=== PATIENT | male | born 1950 | race Caucasian/White ===

== ENCOUNTER → 2018-05-01 | Outpatient (REF) | payer BC, OTHER ==
[2018-05-01 13:11] LABS: INR 1.01; PROTHROMBIN TIME 13.4 SECONDS (12.1-14.4)
[2018-05-01 13:12] LABS: PARTIAL THROMBOPLASTIN TIME 30.2 SECONDS (25.4-37.6)
== END ==
LOC: M LAB REF 12:19
DX: I48.0 Paroxysmal atrial fibrillation (principal)
CPT/HCPCS: 85610

== ENCOUNTER → 2018-11-12 | Outpatient (REF) | payer MEDICARE, OTHER | LOC: M LAB REF 12:15 | PROVIDERS: ATTEND Internal Medicine | DX: M10.9 Gout, unspecified (principal) ==

== ENCOUNTER → 2019-02-26 | Outpatient (REF) | payer MEDICARE, OTHER | LOC: M LAB REF 12:19 | PROVIDERS: ATTEND Internal Medicine | DX: M10.9 Gout, unspecified (principal) ==

== ENCOUNTER 2019-03-14 16:58 | Inpatient (IN) | payer MEDICARE, OTHER ==
[~2019-03-14] VITALS: Ht 175.3 cm; Wt 85.2 kg
[2019-03-14] MEDS ORDERED: LOSA25TA14 PO (17:07)
[2019-03-14] MEDS ORDERED: XARE20TA PO (17:07)
[2019-03-14] MEDS ORDERED: METO1TAB33 PO (17:07)
[2019-03-14] MEDS ORDERED: ATOR40TA75 PO (17:07)
[2019-03-14] MEDS ORDERED: METO1TAB32 PO (17:07)
[2019-03-14] MEDS ORDERED: DIGOXIN INJ 0.5 MG/2 ML AMP (J1160) IV STA ×2 (17:56→20:53)
[2019-03-14 18:02] LABS: BASO % 0.5 % (0.0-1.0); EOS # 0.1 10^3/uL (0.0-0.50); EOS % 1.4 % (0.0-3.0); HEMATOCRIT 45.4 % (42.0-52.0); HEMOGLOBIN 15.4 g/dl (13.5-17.5); LYMPH # 2.1 10^3/uL (1.5-4.5); LYMPH % 32.2 % (24.0-44.0); MEAN CORPUSCULAR HEMOGLOBIN 31.4 pg (27.0-33.0); MEAN CORPUSCULAR HGB CONC 33.9 g/dl (32.0-36.5); MEAN CORPUSCULAR VOLUME 92.7 fl (80.0-96.0); MONO # 0.7 10^3/uL (0.0-0.8); MONO % 11.5 % (0.0-5.0); NEUTROPHILS # 3.5 10^3/uL (1.8-7.7); NEUTROPHILS % 54.1 % (36.0-66.0); PLATELET COUNT, AUTOMATED 227 10^3/uL (150-450); WHITE BLOOD COUNT 6.4 10^3/uL (4.0-10.0)
[2019-03-14 18:13] LABS: INR 1.54; PROTHROMBIN TIME 18.2 SECONDS (11.8-14.0)
[2019-03-14 18:40] LABS: ALBUMIN 3.7 GM/DL (3.2-5.2); ALT/SGPT 54 U/L (12-78); BILIRUBIN,DIRECT 0.5 MG/DL (0.0-0.2); BILIRUBIN,TOTAL 2.8 MG/DL (0.2-1.0); BLOOD UREA NITROGEN 22 MG/DL (7-18); CALCIUM LEVEL 9.7 MG/DL (8.8-10.2); CARBON DIOXIDE LEVEL 28 MEQ/L (21-32); CHLORIDE LEVEL 106 MEQ/L (98-107); CK-MB VALUE MASS 1.6 NG/ML (<3.6); CPK CREATINE PHOSPHOKINASE 86 U/L (39-308); CREATININE FOR GFR 1.66 MG/DL (0.70-1.30); FREE T4 1.18 NG/DL (0.76-1.46); GLOMERULAR FILTRATION RATE 44.3 (>49); GLUCOSE, FASTING 96 MG/DL (70-100); MB/CK RELATIVE INDEX 1.86 (< OR =4); NT-PRO BNP 6442 PG/ML (<125); SODIUM LEVEL 141 MEQ/L (136-145); TOTAL PROTEIN 7.1 GM/DL (6.4-8.2); TROPONIN I < 0.02 NG/ML (< 0.10)
[2019-03-14] MEDS ORDERED: DIGI1TAB PO (18:44)
[2019-03-14] MEDS ORDERED: LASI20TA3 PO (18:55)
[2019-03-14] MEDS ORDERED: METOPROLOL SUCC (TopROL XL) 100MG *XL* TAB PO ONE (19:00)
[2019-03-14] MEDS ORDERED: FUROSEMIDE 20 MG/2 ML VIAL (J1940) IV ONE (19:00)
[2019-03-14 19:03] LABS: MAGNESIUM LEVEL 2.2 MG/DL (1.8-2.4)
--- NOTE | 2019-03-14 19:27 | REPVR ---
EXAM: CT Chest Without Contrast EXAM DATE/TIME: 03/14/2019 6:01 PM CLINICAL HISTORY: 68 years old, male; Shortness of breath; Additional info: SOB TECHNIQUE: Imaging protocol: Computed tomography of the chest without contrast. 3D rendering: MIP reconstructed images were created and reviewed. Radiation optimization: All CT scans at this facility use at least one of these dose optimization techniques: automated exposure control; mA and/or kV adjustment per patient size (includes targeted exams where dose is matched to clinical indication); or iterative reconstruction. COMPARISON: CR CHEST 2 VIEW 03/14/2019 11:39 AM FINDINGS: Thyroid: Normal thyroid. Lungs: There is a 3 cm oval nodule at the right lung base very suspicious for primary or metastatic neoplasm. There is a linear area of density right hilar region which could be infiltrate or neoplasm. There is atelectasis and infiltrate in both lung bases. Underlying nodule of the left lung base not excluded. Pleural space: There are moderate-sized bilateral pleural effusions. There is no evidence of pneumothorax. Heart: The heart is top normal in size. Aorta: Normal size aorta. Lymph nodes: There are small mediastinal lymph nodes. Bones/joints: There is no evidence of bony abnormality. Soft tissues: Unremarkable. Gallbladder and bile ducts: There is mild thickening of the gallbladder wall which can be seen with changes of cholecystitis. Normal spleen. Adrenals: Normal adrenal glands. Kidneys and ureters: Small exophytic cyst right kidney. Wedge-shaped area of low density lower pole left kidney incompletely visualized on this exam. To exclude any possibility of pathology recommend CT scan of the abdomen with contrast or MRI. IMPRESSION: 1. 3 CM oval mass at the right lung base consistent with a primary or metastatic neoplasm. 2. Wedge-shaped area of low density left kidney cannot be completely evaluated on this study and recommend CT with contrast for further evaluation of this. 3. Moderate sized bilateral pleural effusions. 4. Atelectasis and infiltrate in both lung bases. 5. Mild thickening of the gallbladder wall could be secondary to cholecystitis. Electronically signed by: Fili Link On 03/14/2019 19:27:23 PM
--- NOTE | 2019-03-14 19:35 | ECGEPIP ---
[facility] - ED Test Date: 2019-03-14 Pat Name: TERESA MOSES Department: Room: - Gender: Male [employer] Member: VENANCIO : 1950 Requested By: Kerry Hernandez Order Number: [id number] Reading MD: Shamar Estrella Measurements Intervals [place] Rate: 127 P: [place]: 0 QRS: -37 QRSD: 78 T: 29 QT: 333 QTc: 485 Interpretive Statements ATRIAL FIBRILLATION WITH RAPID VENTRICULAR RESPONSE LEFT AXIS DEVIATION NO PRIORS FOR COMPARISON Electronically Signed on 03-14-2019 19:35:34 EDT by Shamar Estrella
[2019-03-14] MEDS ORDERED: DIGOXIN INJ 0.5 MG/2 ML AMP (J1160) IV ONE (20:15)
[2019-03-14 21:32] LABS: DIGOXIN LEVEL 0.1 NG/ML (0.5-2.0)
--- NOTE | 2019-03-14 22:02 | HPEPDOC ---
General Date of Admission 03/14/19 Date of Service: Mar 14, 2019 Chief Complaint The patient is a 68-year-old male admitted with a reason for visit of Light Headed. Source: Patient, RN/MD Exam Limitations: No limitations Severity: Moderate History of Present Illness 68 year old male with PMD if Afib, hypertension, HLD, gout presented to the ED with complaints of dizzy lightheaded, nausea and dyspnea on exertion and generally feeling unwell for the past 7 days. He went to see his PMD about 10 days ago for a routine visit . Then his medication lisinopril/ hctz 04/07.5 was changed to losartan 25 and his metoprolol so dasage was increased from 100 to 125. This change was done due to high uric acid levels. 2 days after this visit he started feeling sick with nausea, light headedness, tiredness, fatigue palpitation. He went to he his PMD again yesterday went he was noted to have Afib with rvr. His Metoprolol was further increased but he continued to feel SOB ,cough, dizzy, weak and tired so came to the ED . In the ED he was found to be in A fib with RVR. He also had a C chest which showed bilateral moderate pleural effusion. 3 CM oval mass at the right lung base consistent with a primary or metastatic neoplasm. Wedge-shaped area of low density left kidney cannot be completely evaluated on this study and recommend CT with contrast for further evaluation of this. Atelectasis and infiltrate in both lung bases. Mild thickening of the gallbladder wall could be secondary to cholecystitis. Pateint was admitted for Afib with RVR and possible CHF Home Medications Scheduled Atorvastatin Calcium (Atorvastatin Calcium) 40 Mg Tablet, 40 MG PO DAILY, (Reported) Metoprolol Succinate (Metoprolol Succinate) 100 Mg Tab.er.24h, 100 MG PO QHS, (Reported) Metoprolol Succinate (Metoprolol Succinate) 25 Mg Tab.er.24h, 50 MG PO DAILY, (Reported) WAS ON 25 MG DAILY, BUT ON 03/14/19 PCP INCREASED TO 50 MG DAILY AND D/C LOSARTAN 25 MG Rivaroxaban (Xarelto) 20 Mg Tablet, 20 MG PO QHS, (Reported) Allergies Coded Allergies: No Known Allergies (Unverified , 03/14/19) Past Medical History Medical History A fib, hypertension, hyperlipidemia, gout Surgical History vasectomy Family History Significant Family History: Cancer (grandmother), Heart disease (afib in father) Social History * Smoker: non-smoker Alcohol: other (daily about 3 beers) Drugs: denies A-FIB/CHADSVASC A-FIB History Current/History of A-Fib/PAF?: Yes Current PO Anticoag Therapy: Yes Review of Systems Constitutional: Reports: Chills, Weakness, Fatigue Eyes: Denies: Pain, Vision change ENT: Denies: Head Aches, Ear Pain, Dysphagia Skin: Denies: Rash, Lesions, Breakdown Pulmonary: Reports: Dyspnea, Cough; Denies: Pleuritic Chest Pain, Other Symptoms Cardiovascular: Reports: Palpitations, Lt Headedness; Denies: Chest Pain, Orthopnea, Edema Gastrointestinal: Reports: Nausea; Denies: Vomiting, Abdominal Pain, Diarrhea, Constipation, Other Symptoms Genitourinary: Denies: Dysuria, Frequency, Incontinence, Retention Hematologic: Denies: Bruising, Bleeding Excessively Musculoskeletal: Denies: Neck Pain, Back Pain, Joint Pain, Muscle Pain, Spasms Physical Examination General Exam: Positive: Alert, Cooperative, No Acute Distress Eye Exam: Positive: PERRLA, Conjunctiva & lids normal, EOMI; Negative: Sclera icteric ENT Exam: Positive: Atraumatic, Mucous membr. moist/pink, Pharynx Normal Neck Exam: Positive: JVD; Negative: Supple, thyromegaly Chest Exam: Positive: Diminished (at both the bases), Other (crackles at both bases); Negative: Rales, Rhonchi, Wheezing Heart Exam: Positive: Tachycardic, Irregular Rhythm, Normal S1, Normal S2; Negative: Gallops, Murmurs, Rubs Telemetry: Positive: Atrial fibrillation Abdomen Exam: Positive: Normal bowel sounds, Soft; Negative: Tenderness, Hepatospenomegaly Extremity Exam: Negative: Clubbing, Cyanosis, Edema Skin Exam: Positive: Nl turgor and temperature; Negative: Breakdown, Lesion Neuro Exam: Positive: Normal Gait, Normal Speech, Cranial Nerves 3-12 NL, Reflexes 2+ Vital Signs Vital Signs Date Time Temp Pulse Resp B/P (MAP) Pulse Ox O2 Delivery O2 Flow Rate FiO2 03/14/19 19:37 121 142/107 03/14/19 18:28 18 94 03/14/19 16:58 97.8 Room Air Laboratory Data Labs 24H Laboratory Tests 2 03/14/19 17:51: Immature Granulocyte % (Auto) 0.3, White Blood Count 6.4, Red Blood Count 4.90, Hemoglobin 15.4, Hematocrit 45.4, Mean Corpuscular Volume 92.7, Mean Corpuscular Hemoglobin 31.4, Mean Corpuscular Hemoglobin Concent 33.9, Red Cell Distribution Width 14.0, Platelet Count 227, Neutrophils (%) (Auto) 54.1, Lymphocytes (%) (Auto) 32.2, Monocytes (%) (Auto) 11.5H, Eosinophils (%) (Auto) 1.4, Basophils (%) (Auto) 0.5, Neutrophils # (Auto) 3.5, Lymphocytes # (Auto) 2.1, Monocytes # (Auto) 0.7, Eosinophils # (Auto) 0.1, Basophils # (Auto) 0.0, Nucleated Red Blood Cells % (auto) 0.0, Prothrombin Time 18.2H, Prothromb Time International Ratio 1.54, Anion Gap 7L, Glomerular Filtration Rate 44.3L, Calcium Level 9.7, Magnesium Level 2.2, Aspartate Amino Transf (AST/SGOT) 33, Alanine Aminotransferase (ALT/SGPT) 54, Alkaline Phosphatase 137H, Total Bilirubin 2.8H, Direct Bilirubin 0.5H, Total Creatine Kinase 86, Creatine Kinase MB 1.6, Crea timmy Kinase MB Relative Index 1.86, Troponin I < 0.02, SO-Nht-H-Type Natriuretic Peptide 6442H, Total Protein 7.1, Albumin 3.7, Albumin/Globulin Ratio 1.09, Thyroid Stimulating Hormone (TSH) 2.880, Free Thyroxine 1.18 CBC/BMP Laboratory Tests 03/14/19 17:51 Red Blood Count 4.90, Mean Corpuscular Volume 92.7, Mean Corpuscular Hemoglobin 31.4, Mean Corpuscular Hemoglobin Concent 33.9, Red Cell Distribution Width 14.0, Neutrophils (%) (Auto) 54.1, Lymphocytes (%) (Auto) 32.2, Monocytes (%) (Auto) 11.5 H, Eosinophils (%) (Auto) 1.4, Basophils (%) (Auto) 0.5, Neutrophils # (Auto) 3.5, Lymphocytes # (Auto) 2.1, Monocytes # (Auto) 0.7, Eosinophils # (Auto) 0.1, Basophils # (Auto) 0.0 Assessment/Plan 68 year old male with PMD if Afib, hypertension, HLD, gout presented to the ED with complaints of dizzy lightheaded, nausea and dyspnea on exertion and generally feeling unwell for the past 7 days. He went to see his PMD about 10 days ago for a routine visit . Then his medication lisinopril/ hctz 20/12.5 was changed to losartan 25 and his metoprolol so dasage was increased from 100 to 125. This change was done due to high uric acid levels. 2 days after this visit he started feeling sick with nausea, light headedness, tiredness, fatigue palpitation. He went to he his PMD again yesterday went he was noted to have Afib with rvr. His Metoprolol was further increased but he continued to feel SOB ,cough, dizzy, weak and tired so came to the ED . In the ED he was found to be in A fib with RVR. He also had a C chest which showed bilateral moderate pleural effusion. 3 CM oval mass at the right lung base consistent with a primary or metastatic neoplasm. Wedge-shaped area of low density left kidney cannot be completely evaluated on this study and recommend CT with contrast for further evaluation of this. Atelectasis and infiltrate in both lung bases. Mild thickening of the gallbladder wall could be secondary to cholecystitis. Pateint was admitted for Afib with RVR and possible CHF Afib with RVR patient got metoprolol 100 in the ED and dig 0.25 IV with no control in HR will give another dose of dig 0.5 mg will continue with metoprolol ECHO consult Antecol will continue xarelto Possible CHF due to tachycardia and high output failure Bilateral pleural effusions, JVD. will continue with lasix Echo MELLO due to CHF will continue with lasix. Hypertension continue losartan and metoprolol Hyperlipidemia continue with statin New Right lower lobe 3cm lung mass primary lung cancer vs metastasis. will need biopsy If possible we will get it done in patient. It cannot be done over the week end so will continue xarelto. Xarelto needs to be held for 24 to 48 hours prior to biopsy please confirm with radiologist. Wedge shaped abnormality in Kidney will need further evaluation by ct with contrast renal infarction from emboli vs mass will hold off as creatinine is elevated. Thickened GB wall abdominal exam is benign, no fever no elevated WBC patient does not have acute cholecystitis. Infiltrates / Atelectasis at the lung base I think this is atelectasis No fever or WBC to suggest an infection. Plan / VTE VTE Prophylaxis Ordered?: Yes LISSET BAUTISTA MD Mar 14, 2019 20:23
[2019-03-14 23:00] VITALS: BP 162/86
[2019-03-15 04:00] VITALS: BP 112/64
[2019-03-15 05:22] LABS: BASO % 0.4 % (0.0-1.0); EOS # 0.1 10^3/uL (0.0-0.50); EOS % 1.5 % (0.0-3.0); HEMATOCRIT 40.2 % (42.0-52.0); HEMOGLOBIN 13.8 g/dl (13.5-17.5); LYMPH # 1.6 10^3/uL (1.5-4.5); LYMPH % 30.5 % (24.0-44.0); MEAN CORPUSCULAR HEMOGLOBIN 31.2 pg (27.0-33.0); MEAN CORPUSCULAR HGB CONC 34.3 g/dl (32.0-36.5); MONO # 0.6 10^3/uL (0.0-0.8); MONO % 10.9 % (0.0-5.0); NEUTROPHILS % 56.3 % (36.0-66.0); PLATELET COUNT, AUTOMATED 169 10^3/uL (150-450); RED BLOOD COUNT 4.42 10^6/uL (4.30-6.10); WHITE BLOOD COUNT 5.2 10^3/uL (4.0-10.0)
[2019-03-15 05:40] LABS: CALCIUM LEVEL 8.8 MG/DL (8.8-10.2); CREATININE FOR GFR 1.56 MG/DL (0.70-1.30); GLOMERULAR FILTRATION RATE 47.6 (>49)
[2019-03-15 08:00] VITALS: BP 110/60
[2019-03-15] MEDS: ATORVASTATIN 20 MG TAB PO SCH (08:18)
[2019-03-15] MEDS: DIGOXIN 0.125 MG TAB PO SCH (08:19)
[2019-03-15] MEDS: METOPROLOL SUCC (TopROL XL) 50MG **XL** TAB PO SCH (08:19)
[2019-03-15] MEDS ORDERED: ENOXAPARIN 40 MG/0.4 ML SYRINGE (J1650) SC SCH (09:00)
[2019-03-15] MEDS ORDERED: FUROSEMIDE 40 MG/4 ML VIAL (J1940) IV SCH (09:00)
[2019-03-15 11:09] LABS: URIC ACID 9.4 MG/DL (3.5-7.2)
[2019-03-15 12:00] VITALS: BP 134/79
--- NOTE | 2019-03-15 12:29 | ECHO ---
DATE OF STUDY: 03/15/2019 REFERRING PHYSICIAN: Dr. Klaudia Morse INDICATION: Heart failure unspecified, atrial fibrillation. HEIGHT: 69 inches. WEIGHT: 191 pounds. 2D MEASUREMENTS: Aortic root: 3.4 cm Proximal ascending aorta: 3.4 cm Left atrium: 4.5 cm Left atrial volume index: 49 Ventricular septum: 1.23 cm Posterior wall: 1.15 cm Left ventricle diastole: 4.9 cm Left ventricle: 63.3 cm DOPPLER MEASUREMENTS: Mild aortic regurgitation. Aortic valve velocity: 136 cm/s LVOT velocity: 105 cm/s Moderate mitral regurgitation. No mitral stenosis. Mild tricuspid regurgitation. Estimated right ventricle systolic pressure: 24-29 mmHg assuming a right pressure of 5-10 mmHg. Mild pulmonic regurgitation. Pulmonary artery systolic pressure: 28 mmHg by pulmonary acceleration time. DESCRIPTION: Rhythm was atrial fibrillation with controlled ventricular response. Image quality was good. This was a 2D, M-mode, color flow Doppler and pulse wave Doppler examination and included mitral annular tissue Doppler. CONCLUSIONS: 1. Borderline concentric left ventricle hypertrophy. No regional wall motion abnormalities of the left ventricle. Left ventricle systolic function was near the lower limits of normal. Left ventricular ejection fraction (LVEF) was 52% (3D). 2. Severe left atrial dilatation by left atrial volume index. 3. Mild mitral annular calcification with moderate mitral regurgitation. 4. Normal right ventricle size and systolic function. Suggestive of normal pulmonary artery systolic pressure and estimated right ventricle systolic pressure. Suggestive of central venous pressure of 5-10 mmHg. 5. No pericardial effusion. 6. Left pleural effusion. 7. Mild aortic valve sclerosis with mild aortic regurgitation.
--- NOTE | 2019-03-15 12:40 | CR ---
DATE OF CONSULTATION: 03/15/2019 REFERRING PHYSICIAN: Dr Klaudia Morse. REASON FOR CONSULTATION: Atrial fibrillation with rapid ventricular response. HISTORY OF PRESENT ILLNESS: Mr. Baldev Hernandez is a very pleasant 68-year-old man with chronic atrial fibrillation, systemic hypertension, and hyperlipidemia. He was first diagnosed with atrial fibrillation approximately 5 years ago when he was under the care of Dr. Elizabeth. He reports having an echocardiogram back then but cannot recall the results. Beginning one week ago, he developed symptoms of lightheadedness, nausea, generalized fatigue, occasional brief rapid palpitations. Denies any pain or pressure, tightness, wheeze or heaviness in his chest with or without activity. No exertional dyspnea, orthopnea, or paroxysmal nocturnal dyspnea (PND). No leg or ankle swelling. No presyncope or syncope. No intermittent claudication. Other than atrial fibrillation, he is not aware of any other cardiac problems. He saw Dr. Carr recently who found that his heart rate was fast and the dosage of metoprolol was increased. He was recently switched from lisinopril/hydrochlorothiazide to losartan. Because the patient was continuing to feel unwell, he presented to the emergency room yesterday where he was found to have atrial fibrillation with rapid ventricular response. The emergency room physician discussed the situation with me and I recommended trying some IV digoxin. He was subsequently admitted under the hospitalist service for further management of atrial fibrillation. At the moment, the patient reports he is feeling much better and is currently not lightheaded or nauseated or shortness of breath. ALLERGIES: No known adverse drug reactions MEDICATIONS PRIOR TO ADMISSION: - atorvastatin 40 mg daily - metoprolol succinate 125 mg daily subsequently just increased to 150 mg daily - Xarelto 20 mg nightly. PATIENT CURRENT MEDICATIONS IN HOSPITAL: - metoprolol succinate 50 mg every morning and 100 mg nightly. - Xarelto 20 mg nightly - furosemide 40 mg IV twice a day - digoxin 0.125 mg by mouth daily. He has received since yesterday, a total of 1 mg of digoxin IV total loading. - atorvastatin 40 mg daily OTHER PAST MEDICAL/SURGICAL HISTORY: Chronic atrial fibrillation. Systemic hypertension. Hypercholesterolemia. Overweight status. Gout. Status post cystectomy. FAMILY HISTORY: Grandmother had cancer. Father had atrial fibrillation. SOCIAL HISTORY: Nonsmoker. Consumes three beers daily. No illicit drugs. , resident of [place], [place]. REVIEW OF SYSTEMS: Reports chills, weakness and fatigue. Reports nonproductive cough. All other 12-point review of systems is negative. No anxiety, panic attacks or depression. PHYSICAL EXAMINATION: Pleasant man who appears his chronologic age who is not in any respiratory or psychological distress. Height 69 inches, weight 86.8 kg, body mass index (BMI) 28.3, temperature 97.8, pulse 81 (irregularly irregular), blood pressure 210/60, respiratory rate 16, oxygen saturation 92% on room air. No conjunctival pallor or scleral icterus is xanthomas. Multiple missing teeth and some dental fillings. Oral mucosa is moist and without pallor or stenosis. Jugular venous pulsations were at 3 cm. Trachea midline. No palpable thyroid. No clubbing, nailbed stenosis or splinter hemorrhages. No skin lesions, skin pallor or icterus. Oriented to person, place and time. Mood and affect were normal. Curvature of the spine normal. Gait was not tested as the patient is presently on bedrest. Gross motor strength and tone appeared normal. No abnormal muscle atrophy, fasciculations, or tremors. Respiratory expansion and effort was good. No crackles or wheezes. No palpable apex beat. No parasternal rifts, heaves, thrills, or palpable heart sounds. First heart sounds variable in intensity. Second heart sounds normal. No S3 or murmurs appreciated. Carotids were normal in volume and contour and without bruits. No palpable abdominal aorta. No abdominal bruits. Femoral pulses normal. Pedal pulses normal. No peripheral edema. Abdomen was soft, nontender with normal bowel sounds. No hepatosplenomegaly or organomegaly. Liver span at 12 cm right midclavicular line. Stool for occult blood not presently indicated. INVESTIGATIONS: CT chest without contrast 03/14/2019 reported a 3 cm oval mass in the right lung base consistent with a primary or metaplastic neoplasm. Wedge-shaped area of low density left kidney, which cannot be completely evaluated on this study. Moderate sized bilateral pleural effusions. Atelectasis and infiltrate in both lung bases. Mild thickening of the gallbladder wall could be secondary to cholelithiasis. EC03/14/2019 at 1716 hours shows atrial fibrillation with rapid ventricular response, 127 beats per minute, left axis deviation. Laboratory Work: 03/15/2019 was reviewed. Hemoglobin 13.8, hematocrit 40.2, platelets 469. Sodium 141, potassium 4.0, chloride 107, CO2 29, BUN 21, creatinine 1.56, estimated GFR 47.6, glucose 89. Laboratory Work: 03/14/2019 showed NT pro-BNP 6442, TSH 2.880, free T4 1.1.8. ASSESSMENT/PLAN: 1. Chronic atrial fibrillation with rapid ventricular response: The patient's [id number] 2 score is 2 (age 65-74 systemic hypertension). Heart rate control has improved with the addition of digoxin. Agree with using the current dosage of metoprolol succinate and digoxin 0.125 mg by mouth daily. Continue Xarelto with the current dosage. 2. Systemic hypertension: Blood pressure presently controlled. Continue metoprolol succinate at the current dosage. I have not made changes to the patient's IV furosemide for now. 3. Hyperlipidemia: No prior recent lipid values for my review. Continue atorvastatin 40 mg daily. I have placed the patient on a cardiac diet with reduced added fats. 4. Heart failure unspecified: This is a new diagnosis for this patient and is supported by an elevated NT pro-BNP. At the moment the patient appears to be compensated on examination. He did have bilateral pleural effusions reported on his CT chest. Echocardiogram Doppler has just been completed and I plan to review this later today. Additional medication changes depending on results of the echocardiogram Doppler. For now continue with digoxin and metoprolol succinate and I furosemide. Thank you kindly for asking me to participate in the cardiac care of Mr. Baldev Hernandez. CORNELIUS
--- NOTE | 2019-03-15 12:53 | IPNPDOC ---
Date Seen The patient was seen on 03/15/19. Progress Note SUBJECTIVE: Patient comfortable sitting in bed, denying any complaints. Afebrile overnight. Cr trending down. HR remained <100. OBJECTIVE PHYSICAL EXAMINATION: VITAL SIGNS: Please see below. General: No acute distress, Alert Eyes: Normal sclera, EOMI, HELGA HENT: Atraumatic, neck supple, moist mucous membranes Cardiovascular: Normal rate. Pulmonary: Mild R. basilar crackles. GI: Soft, nontender, nondistended Skin: Warm and dry Neuro: CN grossly intact. No focal deficits. Strengths equal b/l. Psych: oriented x 3 LABORATORY DATA, IMAGING STUDIES, MICROBIOLOGY: Please see below. DVT prophylaxis ordered?: Xarelto ASSESSMENT AND PLAN: 1. AFib w/ RVR - Now rate controlled. - c/w Metoprolol 50mg AM, 100 mg PM, and Digoxin .125. - c/w Xarelto - ECHO noted. Cardiology following. 2. Suspected HF - ECHO noted EF 52%. f/u finalized read. - c/w Lasix 3. MELLO - monitor BMP. - c/w diuresis. 4. HTN - c/w Losartan and metoprolol. 5. HLD - c/w statin 6. R. Lower lobe lung mass - 3 cm with pleural effusion. - Will try to obtain biopsy of lesion on Sunday/Sunday if possible. - Hold Xarelto about 24 hours prior to procedure if able to confirm appt for it. 7. Wedge shape abnormality of kidney on imaging - ischemic vs. emboli vs. mass - Consider repeating scan with IV contrast once kidney function improves. VS, I&O, 24H, Fishbone Vital Signs/I&O Vital Signs Date Time Temp Pulse Resp B/P (MAP) Pulse Ox O2 Delivery O2 Flow Rate FiO2 03/15/19 12:00 97.9 80 17 134/79 (97) 95 03/14/19 16:58 Room Air I&O- Last 24 Hours up to 6 AM 03/15/19 06:00 Intake Total 0 ml Output Total 1825 ml Balance -1825 ml Laboratory Data 24H LABS Laboratory Tests 2 03/14/19 17:51: Immature Granulocyte % (Auto) 0.3, White Blood Count 6.4, Red Blood Count 4.90, Hemoglobin 15.4, Hematocrit 45.4, Mean Corpuscular Volume 92.7, Mean Corpuscular Hemoglobin 31.4, Mean Corpuscular Hemoglobin Concent 33.9, Red Cell Distribution Width 14.0, Platelet Count 227, Neutrophils (%) (Auto) 54.1, Lymphocytes (%) (Auto) 32.2, Monocytes (%) (Auto) 11.5H, Eosinophils (%) (Auto) 1.4, Basophils (%) (Auto) 0.5, Neutrophils # (Auto) 3.5, Lymphocytes # (Auto) 2.1, Monocytes # (Auto) 0.7, Eosinophils # (Auto) 0.1, Basophils # (Auto) 0.0, Nucleated Red Blood Cells % (auto) 0.0, Prothrombin Time 18.2H, Prothromb Time International Ratio 1.54, Anion Gap 7L, Glomerular Filtration Rate 44.3L, Calcium Level 9.7, Magnesium Level 2.2, Aspartate Amino Transf (AST/SGOT) 33, Alanine Aminotransferase (ALT/SGPT) 54, Alkaline Phosphatase 137H, Total Bilirubin 2.8H, Direct Bilirubin 0.5H, Total Creatine Kinase 86, Creatine Kinase MB 1.6, Creatine Kinase MB Relative Index 1.86, Troponin I < 0.02, KU-[id number]-Type Natriuretic Peptide 6442H, Total Protein 7.1, Albumin 3.7, Albumin/Globulin Ratio 1.09, Thyroid Stimulating Hormone (TSH) 2.880, Free Thyroxine 1.18, Digoxin Level 0.1L 03/15/19 05:00: Immature Granulocyte % (Auto) 0.4, White Blood Count 5.2, Red Blood Count 4.42, Hemoglobin 13.8, Hematocrit 40.2L, Mean Corpuscular Volume 91.0, Mean Corpuscular Hemoglobin 31.2, Mean Corpuscular Hemoglobin Concent 34.3, Red Cell Distribution Width 13.7, Platelet Count 169, Neutrophils (%) (Auto) 56.3, Lymphocytes (%) (Auto) 30.5, Monocytes (%) (Auto) 10.9H, Eosinophils (%) (Auto) 1.5, Basophils (%) (Auto) 0.4, Neutrophils # (Auto) 3.0, Lymphocytes # (Auto) 1.6, Monocytes # (Auto) 0.6, Eosinophils # (Auto) 0.1, Basophils # (Auto) 0.0, Nucleated Red Blood Cells % (auto) 0.0, Anion Gap 5L, Glomerular Filtration Rate 47.6L, Calcium Level 8.8, Uric Acid 9.4H, Blood Urea Nitrogen 21H, Creatinine 1.56H, Sodium Level 141, Potassium Level 4.0, Chloride Level 107, Carbon Dioxide Level 29 CBC/BMP Laboratory Tests 03/14/19 17:51 Red Blood Count 4.90, Mean Corpuscular Volume 92.7, Mean Corpuscular Hemoglobin 31.4, Mean Corpuscular Hemoglobin Concent 33.9, Red Cell Distribution Width 14.0, Neutrophils (%) (Auto) 54.1, Lymphocytes (%) (Auto) 32.2, Monocytes (%) (Auto) 11.5 H, Eosinophils (%) (Auto) 1.4, Basophils (%) (Auto) 0.5, Neutrophils # (Auto) 3.5, Lymphocytes # (Auto) 2.1, Monocytes # (Auto) 0.7, Eosinophils # (Auto) 0.1, Basophils # (Auto) 0.0 03/15/19 05:00 Red Blood Count 4.42, Mean Corpuscular Volume 91.0, Mean Corpuscular Hemoglobin 31.2, Mean Corpuscular Hemoglobin Concent 34.3, Red Cell Distribution Width 13.7, Neutrophils (%) (Auto) 56.3, Lymphocytes (%) (Auto) 30.5, Monocytes (%) (Auto) 10.9 H, Eosinophils (%) (Auto) 1.5, Basophils (%) (Auto) 0.4, Neutrophils # (Auto) 3.0, Lymphocytes # (Auto) 1.6, Monocytes # (Auto) 0.6, Eosinophils # (Auto) 0.1, Basophils # (Auto) 0.0, Calcium Level 8.8 JENNIFER MONTAGUE MD Mar 15, 2019 12:53
[2019-03-15] MEDS ORDERED: IPRATROPIUM 0.5MG/ALBUTEROL 2.5MG INH SOL UD 3ML (DUONEB)(J7620) NEB PRN (14:00)
[2019-03-15 16:00] VITALS: BP 131/95
[2019-03-15 20:05] VITALS: BP 138/90
[2019-03-15] MEDS ORDERED: METOPROLOL SUCC (TopROL XL) 100MG *XL* TAB PO SCH (21:00)
[2019-03-15] MEDS ORDERED: RIVAROXABAN 20 MG TAB (XARELTO) PO SCH (21:00)
[2019-03-16 00:05] VITALS: BP 140/90
[2019-03-16 04:00] VITALS: BP 135/86
[2019-03-16 06:06] LABS: BASO % 0.3 % (0.0-1.0); EOS # 0.1 10^3/uL (0.0-0.50); EOS % 1.3 % (0.0-3.0); HEMATOCRIT 43.5 % (42.0-52.0); HEMOGLOBIN 14.9 g/dl (13.5-17.5); LYMPH # 1.6 10^3/uL (1.5-4.5); LYMPH % 27.2 % (24.0-44.0); MEAN CORPUSCULAR HGB CONC 34.3 g/dl (32.0-36.5); MEAN CORPUSCULAR VOLUME 87.5 fl (80.0-96.0); MONO # 0.7 10^3/uL (0.0-0.8); MONO % 12.3 % (0.0-5.0); NEUTROPHILS # 3.5 10^3/uL (1.8-7.7); NEUTROPHILS % 58.4 % (36.0-66.0); PLATELET COUNT, AUTOMATED 206 10^3/uL (150-450); RED BLOOD COUNT 4.97 10^6/uL (4.30-6.10)
[2019-03-16 06:31] LABS: CALCIUM LEVEL 9.3 MG/DL (8.8-10.2); CREATININE FOR GFR 1.59 MG/DL (0.70-1.30); GLOMERULAR FILTRATION RATE 46.6 (>49); POTASSIUM SERUM 3.7 MEQ/L (3.5-5.1)
[2019-03-16 08:00] VITALS: BP 142/82
[2019-03-16] MEDS: ATORVASTATIN 20 MG TAB PO SCH (08:19)
[2019-03-16] MEDS: DIGOXIN 0.125 MG TAB PO SCH (08:19)
[2019-03-16 08:20] VITALS: BP 142/82
[2019-03-16] MEDS: METOPROLOL SUCC (TopROL XL) 50MG **XL** TAB PO SCH (08:20)
[2019-03-16] MEDS ORDERED: DIGO0.12 PO (11:17)
[2019-03-16] MEDS ORDERED: METO1TAB33 PO (11:17)
--- NOTE | 2019-03-16 11:23 | DS.PDOC ---
Discharge Summary General Date of Admission Mar 14, 2019 at 20:54 Date of Discharge 03/16/19 Discharge Summary PROCEDURES PERFORMED DURING STAY: [None]. ADMITTING DIAGNOSES: 1. Afib w/ RVR 2. HLD 3. Gout 4. Lung nodule/mass DISCHARGE DIAGNOSES: 1. Afib w/ RVR 2. HLD 3. Gout 4. Lung nodule/mass COMPLICATIONS/CHIEF COMPLAINT: Atrial Fibrillation With Rapid Ventricular Response. HISTORY OF PRESENT ILLNESS: "68 year old male with PMD if Afib, hypertension, HLD, gout presented to the ED with complaints of dizzy lightheaded, nausea and dyspnea on exertion and generally feeling unwell for the past 7 days. He went to see his PMD about 10 days ago for a routine visit . Then his medication lisinopril/ hctz /.5 was changed to losartan 25 and his metoprolol so dasage was increased from 100 to 125. This change was done due to high uric acid levels. 2 days after this visit he started feeling sick with nausea, light headedness, tiredness, fatigue palpitation. He went to he his PMD again yesterday went he was noted to have Afib with rvr. His Metoprolol was further increased but he continued to feel SOB ,cough, dizzy, weak and tired so came to the ED . In the ED he was found to be in A fib with RVR. He also had a C chest which showed bilateral moderate pleural effusion. 3 CM oval mass at the right lung base consistent with a primary or metastatic neoplasm. Wedge-shaped area of low density left kidney cannot be completely evaluated on this study and recommend CT with contrast for further evaluation of this. Atelectasis and infiltrate in both lung bases. Mild thickening of the gallbladder wall could be secondary to cholecystitis. Pateint was admitted for Afib with RVR and possible CHF" HOSPITAL COURSE: Patient was admitted and diuresed with resolution of symptoms. Initial plan to have patient try to get biopsy with IR after the weekend for the R. lower lobe lung mass. However, have discussed with pulmonology and can be seen as outpatient, likely can have bronch/EUS through pulm instead. He was seen by cardiology Dr. Chandler on this admission and digoxin was added for better HR controlled. His HR has been better controlled and will continue with his Toprol Xl 150mg daily total along with Digoxin .125. f/u Dr. Chandler in 4 weeks. PMD as scheduled and Pulmonology in about 1 week. Does not recommend Lasix at home at this time, ECHO EF 52%. DISCHARGE MEDICATIONS: Please see below. ALLERGIES: Please see below. PHYSICAL EXAMINATION ON DISCHARGE: VITAL SIGNS: Please see below. General: No acute distress, Alert Eyes: Normal sclera, EOMI, HELGA HENT: Atraumatic, neck supple, moist mucous membranes Cardiovascular: Normal rate. Pulmonary: Mild R. basilar crackle. GI: Soft, nontender, nondistended Skin: Warm and dry Neuro: CN grossly intact. No focal deficits. Strengths equal b/l. Psych: oriented x 3 LABORATORY DATA: Please see below. IMAGING: CT Chest- IMPRESSION: 1. 3 CM oval mass at the right lung base consistent with a primary or metastatic neoplasm. 2. Wedge-shaped area of low density left kidney cannot be completely evaluated on this study and recommend CT with contrast for further evaluation of this. 3. Moderate sized bilateral pleural effusions. 4. Atelectasis and infiltrate in both lung bases. 5. Mild thickening of the gallbladder wall could be secondary to cholecystitis. ACTIVITY: [As tolerated]. DIET: Regular DISCHARGE PLAN: Take Toprol 150mg daily in AM as well as digoxin daily f/u PMD as scheduled f/u Dr. Chandler in 4 week f/u Pulm in about 1 week for likely Bronch/EUS DISPOSITION: Home. DISCHARGE INSTRUCTIONS: Take Toprol 150mg daily in AM as well as digoxin daily f/u PMD as scheduled f/u Dr. Chandler in 4 week f/u Pulm in about 1 week for likely Bronch/EUS ITEMS TO FOLLOWUP ON ON OUTPATIENT: 1. None DISCHARGE CONDITION: [Stable]. TIME SPENT ON DISCHARGE: 35 minutes. Vital Signs/I&Os Vital Signs Date Time Temp Pulse Resp B/P (MAP) Pulse Ox O2 Delivery O2 Flow Rate FiO2 03/16/19 08:20 105 142/82 03/16/19 08:00 97.4 17 95 03/14/19 16:58 Room Air I&O- Last 24 Hours up to 6 AM 03/16/19 05:59 Intake Total 1080 ml Output Total 2000 ml Balance -920 ml Laboratory Data Labs 24H Laboratory Tests 2 03/16/19 05:42: Immature Granulocyte % (Auto) 0.5, White Blood Count 6.0, Red Blood Count 4.97, Hemoglobin 14.9, Hematocrit 43.5, Mean Corpuscular Volume 87.5, Mean Corpuscular Hemoglobin 30.0, Mean Corpuscular Hemoglobin Concent 34.3, Red Cell Distribution Width 13.3, Platelet Count 206, Neutrophils (%) (Auto) 58.4, Lym phocytes (%) (Auto) 27.2, Monocytes (%) (Auto) 12.3H, Eosinophils (%) (Auto) 1.3, Basophils (%) (Auto) 0.3, Neutrophils # (Auto) 3.5, Lymphocytes # (Auto) 1.6, Monocytes # (Auto) 0.7, Eosinophils # (Auto) 0.1, Basophils # (Auto) 0.0, Nucleated Red Blood Cells % (auto) 0.0, Anion Gap 8, Glomerular Filtration Rate 46.6L, Blood Urea Nitrogen 22H, Creatinine 1.59H, Sodium Level 140, Potassium Level 3.7, Chloride Level 103, Carbon Dioxide Level 29, Calcium Level 9.3 CBC/BMP Laboratory Tests 03/16/19 05:42 Red Blood Count 4.97, Mean Corpuscular Volume 87.5, Mean Corpuscular Hemoglobin 30.0, Mean Corpuscular Hemoglobin Concent 34.3, Red Cell Distribution Width 13.3, Neutrophils (%) (Auto) 58.4, Lymphocytes (%) (Auto) 27.2, Monocytes (%) (Auto) 12.3 H, Eosinophils (%) (Auto) 1.3, Basophils (%) (Auto) 0.3, Neutrophils # (Auto) 3.5, Lymphocytes # (Auto) 1.6, Monocytes # (Auto) 0.7, Eosinophils # (Auto) 0.1, Basophils # (Auto) 0.0, Calcium Level 9.3 Discharge Medications Scheduled Atorvastatin Calcium (Atorvastatin Calcium) 40 Mg Tablet, 40 MG PO DAILY, (Reported) Digoxin (Digoxin) 125 Mcg Tablet, 0.125 MG PO DAILY Metoprolol Succinate (Metoprolol Succinate) 25 Mg Tab.er.24h, 50 MG PO DAILY, (Reported) WAS ON 25 MG DAILY, BUT ON 03/14/19 PCP INCREASED TO 50 MG DAILY AND D/C LOSARTAN 25 MG Metoprolol Succinate (Metoprolol Succinate) 100 Mg Tab.er.24h, 100 MG PO DAILY Take along with the 50 mg tab to total of 150mg each morning together Rivaroxaban (Xarelto) 20 Mg Tablet, 20 MG PO QHS, (Reported) Allergies Coded Allergies: No Known Allergies (Unverified , 03/14/19) JENNIFER MONTAGUE MD Mar 16, 2019 11:23
== END 2019-03-16 12:08 | disposition home or self-care (01) | DRG 309 ==
LOC: M ED 16:58 → M ED INP 20:54 → M PCU 22:55
PROVIDERS: ADMIT Internal Medicine Nephrology; ATTEND Student in an Organized Health Care Education/Training Program
DX: I48.2 Chronic atrial fibrillation (principal); J90 Pleural effusion, not elsewhere classified; N17.9 Acute kidney failure, unspecified; J98.11 Atelectasis; I10 Essential (primary) hypertension; I50.9 Heart failure, unspecified; E78.5 Hyperlipidemia, unspecified; M10.9 Gout, unspecified; E66.3 Overweight; N28.89 Other specified disorders of kidney and ureter; R91.8 Other nonspecific abnormal finding of lung field; Z68.28 Body mass index [BMI] 28.0-28.9, adult; Z79.01 Long term (current) use of anticoagulants; Z79.899 Other long term (current) drug therapy

== ENCOUNTER → 2019-03-14 | Outpatient (CLI) | payer MEDICARE, OTHER ==
[~2019-03-14] MED LIST: ATOR40TA75 PO; DIGI1TAB PO; DIGO0.12 PO; LASI20TA3 PO; LOSA25TA14 PO; METO1TAB32 PO; METO1TAB33 PO; XARE20TA PO
--- NOTE | 2019-03-14 13:23 | REP ---
Chest, two PA and one lateral view Indication: Cough. A fib. RVR. Comparison: Two-view chest of 03/04/2015. Findings: The heart is mildly enlarged compared to prior. There is symmetric prominence of the pulmonary vascularity. There is blunting of the left costophrenic angle with patchy opacity near the diaphragm, suggestive of left lower lobe infiltrate and/or effusion. This is a new finding. The remainder of the lungs are clear. The right costophrenic angle is sharp. Impression: New patchy opacity lung the left diaphragm suggestive of left lower lobe infiltrate and/or pleural effusion. Electronically Signed by Erlinda Juarez MD 03/14/2019 01:14 P
== END ==
LOC: M WUC 11:19
PROVIDERS: ATTEND Internal Medicine
DX: R91.8 Other nonspecific abnormal finding of lung field (principal); R05 Cough

== ENCOUNTER → 2019-03-19 | Outpatient (REF) | payer MEDICARE, OTHER ==
[~2019-03-19] MED LIST changes: -DIGO0.12 PO; +DIGO0.123 PO
== END ==
LOC: M LAB REF 17:12
PROVIDERS: ATTEND Internal Medicine
DX: I48.0 Paroxysmal atrial fibrillation (principal)

== ENCOUNTER → 2019-04-17 | Outpatient (REF) | payer MEDICARE, OTHER ==
[~2019-04-17] MED LIST changes: +DIGO0.12 PO; -DIGO0.123 PO
== END ==
LOC: M LAB REF 12:35
PROVIDERS: ATTEND Internal Medicine
DX: I48.0 Paroxysmal atrial fibrillation (principal)

== ENCOUNTER → 2019-06-20 | Outpatient (REF) | payer MEDICARE, OTHER ==
[2019-06-20 17:33] LABS: DIGOXIN LEVEL 1.1 NG/ML (0.5-2.0); URIC ACID 6.7 MG/DL (3.5-7.2)
== END ==
LOC: M LAB REF 16:13
PROVIDERS: ATTEND Internal Medicine
DX: I48.0 Paroxysmal atrial fibrillation (principal); M10.9 Gout, unspecified

== ENCOUNTER → 2019-11-14 | Outpatient (CLI) | payer MEDICARE, BC, OTHER ==
[~2019-11-14] MED LIST changes: -DIGO0.12 PO; +DIGO0.123 PO
--- NOTE | 2019-11-14 11:33 | REP ---
CT CHEST WITHOUT CONTRAST: HISTORY: Lung carcinoma. Status post surgery. Comparison chest CT study March 14, 2019. CT FINDINGS: The patient is status post right thoracotomy and partial pneumonectomy with suture line visible in the infrahilar level on the right. The previously noted right lower lobe 2.5 cm lung nodule has been resected. There is no evidence of pleural effusion on either side today. Lung mcguire are otherwise clear. No nodule, mass, or infiltrate is appreciated. Normal adrenal glands are seen. There is a cyst at the mid to lower pole left kidney at the bottom edge of the imaging field of view incompletely seen measuring 4.3 cm. Smaller cysts are noted in the right kidney. There is a small peripheral low density area in the right lobe of the liver this is noted to be a benign hemangioma on previous studies from 2007. There is a left coronary artery vascular calcification. No hilar or mediastinal mass or adenopathy is observed. No bony destructive lesion is appreciated. IMPRESSION: Status post partial pneumonectomy right thoracotomy changes on the right. Minimal vascular calcification. Bilateral renal cysts. Benign hemangioma of the liver. No active disease. Electronically Signed by Maynor Morataya MD 11/14/2019 12:57 P
== END ==
LOC: M RAD 09:56
DX: C34.90 Malignant neoplasm of unspecified part of unspecified bronchus or lung (principal)

== ENCOUNTER → 2019-12-05 | Outpatient (CLI) | payer MEDICARE, BC, OTHER ==
[2019-12-05 20:04] LABS: CALCIUM LEVEL 9.1 MG/DL (8.8-10.2); CREATININE FOR GFR 1.8 MG/DL (0.70-1.30); GLOMERULAR FILTRATION RATE 40.3 (>49); POTASSIUM SERUM 4.2 MEQ/L (3.5-5.1)
== END ==
LOC: M WUC 15:17
PROVIDERS: ATTEND Physician Assistant
DX: I10 Essential (primary) hypertension (principal)

== ENCOUNTER → 2019-12-29 | Outpatient (CLI) | payer MEDICARE, BC, OTHER ==
[~2019-12-29] MED LIST changes: +AMIO200T PO; +AMLO10TA5 PO; +XARE10TA PO
== END ==
LOC: M LABSMTC 11:42
PROVIDERS: ATTEND Anesthesiology
DX: Z03.818 Encounter for observation for suspected exposure to other biological agents ruled out (principal); Z11.59 Encounter for screening for other viral diseases
CPT/HCPCS: C9803; U0003

== ENCOUNTER → 2020-01-01 | Day surgery (SDC) | payer MEDICARE, BC, OTHER ==
[~2020-01-01] VITALS: Ht 175.3 cm; Wt 83.0 kg
[~2020-01-01] MED LIST changes: +LIDOCAINE 1% MDV 20ML VIAL SQ PRN; +LR 1,000 ML IV ONE
[2020-01-01 06:22] VITALS: BP 160/91
--- NOTE | 2020-01-01 11:03 | ECGEPIP ---
[facility] Test Date: 2020-01-01 Pat Name: TERESA MOSES Department: Room: - Gender: Male Advisory Application Developer: ARUN : 1950 Requested By: Henry Ortega Order Number: [id number] Reading MD: Arias Lynch Measurements Intervals Fine Rate: 49 P: 60 OK: 217 QRS: -25 QRSD: 95 T: 28 QT: 511 QTc: 465 Interpretive Statements Sinus bradycardia with first degree AV block Left axis deviation Nonspecific T wave abnormality Compared to prior tracing of 03/14/2019, atrial fibrillation has resolved Electronically Signed on 01-01-2020 11:03:07 EDT by Arias Lynch
== END | disposition home or self-care (01) ==
LOC: M SDC 06:07
PROVIDERS: ATTEND Internal Medicine Cardiovascular Disease
DX: I48.91 Unspecified atrial fibrillation (principal); Z53.8 Procedure and treatment not carried out for other reasons

== ENCOUNTER → 2021-01-12 | Outpatient (CLI) | payer MEDICARE, BC, OTHER ==
[~2021-01-12] MED LIST changes: -AMIO200T PO; +AMIO200T3 PO; -AMLO10TA5 PO; +AMLO1TAB25 PO; -LIDOCAINE 1% MDV 20ML VIAL SQ PRN; -LR 1,000 ML IV ONE
--- NOTE | 2021-01-12 10:39 | PFTRPT ---
Height: 69.00 Inches Weight: 185.00 Lbs BSA: 2.00 Diagnosis: Z79.899 DATE: 01/12/2021 ORDERING PHYSICIAN: HEAVENLY Rinaldi Study is of excellent technical quality. Forced vital capacity is normal. FEV1 is in proportion. Obstructive index is therefore normal. Expiratory limit of the flow-volume loop is normal. Bronchodilator response is not tested. Total lung capacity is normal. Residual volume is in proportion. Diffusing capacity although minimally reduced is appropriate for alveolar volume. No hemoglobin available for correction. Airway resistance and conductance are normal. IMPRESSION: Borderline diffusing capacity, otherwise normal study. Please correlate clinically. MTDD
== END ==
LOC: M CARPUL 09:50
PROVIDERS: ATTEND Nurse Practitioner Family
DX: Z79.899 Other long term (current) drug therapy (principal)

== ENCOUNTER → 2021-04-06 | Outpatient (REF) | payer MEDICARE, BC, OTHER ==
[2021-04-06 17:24] LABS: PHOSPHORUS LEVEL 2.7 MG/DL (2.5-4.9)
== END ==
LOC: M LAB REF 16:25
PROVIDERS: ATTEND Internal Medicine
DX: M10.9 Gout, unspecified (principal); I12.9 Hypertensive chronic kidney disease with stage 1 through stage 4 chronic kidney disease, or unspecified chronic kidney disease

== ENCOUNTER → 2022-04-17 | Outpatient (CLI) | payer MEDICARE, BC, OTHER ==
[~2022-04-17] MED LIST changes: -AMIO200T3 PO; +AMIO200T49 PO; +LOSA25TA13 PO; -LOSA25TA14 PO
== END ==
LOC: M RAD 08:55 → M PLAIMG 08:55
PROVIDERS: ATTEND Thoracic Surgery (Cardiothoracic Vascular Surgery)
DX: C34.90 Malignant neoplasm of unspecified part of unspecified bronchus or lung (principal)

== ENCOUNTER → 2022-04-27 | Outpatient (REF) | payer MEDICARE, BC, OTHER | LOC: M LAB REF 11:20 | PROVIDERS: ATTEND Internal Medicine | DX: M10.9 Gout, unspecified (principal) ==

== ENCOUNTER → 2023-11-19 | Outpatient (REF) | payer MEDICARE, BC, OTHER ==
[~2023-11-19] MED LIST changes: -DIGI1TAB PO; +[UNRECOGNIZED DRUG - CODE] PO
== END ==
LOC: M LAB REF 13:08
PROVIDERS: ATTEND Internal Medicine
DX: M10.9 Gout, unspecified (principal)

== ENCOUNTER → 2024-03-18 | Outpatient (CLI) | payer MEDICARE, BC | LOC: M PLALAB 09:34 | PROVIDERS: ATTEND Urology | DX: R97.20 Elevated prostate specific antigen [PSA] (principal) ==

== ENCOUNTER → 2024-07-07 | Outpatient (CLI) | payer MEDICARE, BC ==
[2024-07-10 13:13] LABS: PSA FREE 0.6 ng/mL; PSA TOTAL 4.8 ng/mL (< OR = 4.0)
== END ==
LOC: M PLALAB 12:59
PROVIDERS: ATTEND Urology
DX: R97.20 Elevated prostate specific antigen [PSA] (principal)

== ENCOUNTER → 2024-11-13 | Outpatient (CLI) | payer MEDICARE, BC ==
[2024-11-14 10:42] LABS: PSA FREE 0.6 ng/mL
== END ==
LOC: M PLALAB 11:11
PROVIDERS: ATTEND Urology
DX: R97.20 Elevated prostate specific antigen [PSA] (principal)

== ENCOUNTER → 2024-11-28 | Outpatient (REF) | payer MEDICARE, OTHER | LOC: M LAB REF 12:22 | PROVIDERS: ATTEND Internal Medicine | DX: M10.9 Gout, unspecified (principal) ==

== ENCOUNTER → 2025-01-09 | Outpatient (REF) | payer MEDICARE, OTHER, BC ==
[~2025-01-09] MED LIST changes: -AMIO200T49 PO; +AMIO200T54 PO; +LOSA100T46 PO; +RA B1TAB2 PO
== END ==
LOC: M SMT 12:52
PROVIDERS: ATTEND Urology
DX: C61 Malignant neoplasm of prostate (principal); R97.20 Elevated prostate specific antigen [PSA]; Z79.899 Other long term (current) drug therapy

== ENCOUNTER 2025-01-13 12:11 | Day surgery (SDC) | payer MEDICARE, BC ==
[~2025-01-13] VITALS: Ht 177.8 cm; Wt 81.9 kg
[2025-01-13] MEDS ORDERED: LIDOCAINE 2% 100 MG/5 ML SDV (FOR ANES.) As Ordered ONE (13:51)
[2025-01-13 15:15] VITALS: TEMP 97.5
[2025-01-13 15:37] VITALS: BP 108/72; O2SAT 97
== END 2025-01-13 15:48 | disposition home or self-care (01) ==
LOC: M OPP 12:11
PROVIDERS: ATTEND Surgery
DX: Z12.11 Encounter for screening for malignant neoplasm of colon (principal); R19.5 Other fecal abnormalities; D12.8 Benign neoplasm of rectum; K64.8 Other hemorrhoids; K22.70 Barrett's esophagus without dysplasia; K44.9 Diaphragmatic hernia without obstruction or gangrene; K29.50 Unspecified chronic gastritis without bleeding; I48.91 Unspecified atrial fibrillation; Z79.01 Long term (current) use of anticoagulants; Z79.899 Other long term (current) drug therapy
CPT/HCPCS: 43239; 45385; 88305; J3010

== ENCOUNTER → 2025-01-20 | Outpatient (CLI) | payer MEDICARE, BC ==
[2025-01-20 16:13] LABS: CALCIUM LEVEL 9.8 MG/DL (8.3-10.6); CARBON DIOXIDE LEVEL 26.0 MMOL/L (20-31); CHLORIDE LEVEL 106.0 MMOL/L (98-107); CREATININE FOR GFR 2.08 MG/DL (0.70-1.30); GLOMERULAR FILTRATION RATE 33.2 (>42); POTASSIUM SERUM 5.1 MMOL/L (3.5-5.1); SODIUM LEVEL 141.0 MMOL/L (136-145)
== END ==
LOC: M PLALAB 11:37
PROVIDERS: ATTEND Urology
DX: C61 Malignant neoplasm of prostate (principal)

== ENCOUNTER → 2025-03-19 | Outpatient (CLI) | payer MEDICARE, BC ==
[2025-03-19 10:34] LABS: PLATELET COUNT, AUTOMATED 244 10^3/uL (150-450)
[2025-03-19 10:40] LABS: INR 2.05
[2025-03-19 10:55] LABS: ALT/SGPT 19.0 U/L (7.0-40); AST/SGOT 24.0 U/L (<34); CALCIUM LEVEL 9.9 MG/DL (8.3-10.6); CARBON DIOXIDE LEVEL 26.0 MMOL/L (20-31); CHLORIDE LEVEL 103.0 MMOL/L (98-107); CREATININE FOR GFR 1.77 MG/DL (0.70-1.30); GLOMERULAR FILTRATION RATE 40.3 (>42); POTASSIUM SERUM 4.5 MMOL/L (3.5-5.1); SODIUM LEVEL 139.0 MMOL/L (136-145)
== END ==
LOC: M PLALAB 09:07
PROVIDERS: ATTEND Urology
DX: Z01.818 Encounter for other preprocedural examination (principal); C61 Malignant neoplasm of prostate; Z79.01 Long term (current) use of anticoagulants

== ENCOUNTER → 2025-04-01 | Outpatient (REF) | payer MEDICARE, BC ==
[2025-04-01 18:02] LABS: APPEARANCE, URINE HAZY (CLEAR); BACTERIA, URINE AUTO NEGATIVE (NEGATIVE); BILIRUBIN, URINE AUTO NEGATIVE (NEGATIVE); BLOOD, URINE BLOOD NEGATIVE (NEGATIVE); GLUCOSE, URINE (UA) AUTO NEGATIVE (NEGATIVE); KETONE, URINE AUTO NEGATIVE (NEGATIVE); LEUKOCYTE ESTERASE, URINE AUTO 1+ (NEGATIVE); MUCUS, URINE SMALL (NEGATIVE); NITRITE, URINE AUTO NEGATIVE (NEGATIVE); PROTEIN, URINE AUTO 1+ mg/dL (NEGATIVE); RBC, URINE AUTO 2 /HPF (0-3); SPECIFIC GRAVITY URINE AUTO 1.017 (1.002-1.035); SQUAMOUS EPITHELIAL CELL UR AU 0 /HPF (0-6); UROBILINOGEN, URINE AUTO 0.2 mg/dL (0.0-2.0); WBC, URINE AUTO 13 /HPF (0-3)
== END ==
LOC: M LAB REF 15:00
PROVIDERS: ATTEND Urology
DX: C61 Malignant neoplasm of prostate (principal); Z79.899 Other long term (current) drug therapy

== ENCOUNTER 2025-04-09 06:11 | Day surgery (SDC) | payer MEDICARE, BC ==
[2025-04-09] VITALS (7 sets, daily range): BP systolic 120–125; BP diastolic 61–83; TEMP 97–97.5; O2SAT 94–99
[~2025-04-09] VITALS: Ht 175.3 cm; Wt 81.3 kg
[2025-04-09] MEDS: LR 1,000 ML IV SCH (07:10)
[2025-04-09] MEDS ORDERED: MIDAZOLAM INJ 2 MG/2 ML VIAL As Ordered ONE (07:13)
[2025-04-09] MEDS ORDERED: LIDOCAINE 2% 100 MG/5 ML SDV (FOR ANES.) As Ordered ONE (07:13)
[2025-04-09] MEDS ORDERED: ROCURONIUM BROMIDE 50MG/5ML VIAL As Ordered ONE (07:13)
[2025-04-09] MEDS ORDERED: ACETAMINOPHEN 325 MG TAB PO PRN (07:30)
[2025-04-09] MEDS ORDERED: ONDANSETRON 4MG 2ML VIAL IV PRN ×2 (07:30→11:30)
[2025-04-09] MEDS ORDERED: PERCOCET 5MG/325MG TAB PO PRN (07:30)
[2025-04-09] MEDS ORDERED: dexAMETHasone 4 MG/ML 1 ML VIAL As Ordered ONE (07:47)
[2025-04-09] MEDS: ceFAZolin SOD 2 GM IV ONCE IV ONE (07:49)
[2025-04-09] MEDS: HEPARIN SOD 5000 UNITS/ML 1 ML VIAL/SYRINGE SQ ONE (07:50)
[2025-04-09] MEDS ORDERED: PHENYLephrine 500MCG 5ML (100MCG/ML) SYRINGE As Ordered ONE (07:53)
[2025-04-09] MEDS ORDERED: GLYCOPYRROLATE INJ 0.2 MG/ML 2 ML VIAL As Ordered ONE (08:11)
[2025-04-09] MEDS ORDERED: ESMOLOL 100 MG/10 ML VIAL As Ordered ONE (08:28)
[2025-04-09] MEDS ORDERED: HYDROmorphone HCL 2 MG/ML 1 ML VIAL As Ordered ONE (08:33)
[2025-04-09] MEDS ORDERED: ONDANSETRON 4MG 2ML VIAL As Ordered ONE (09:26)
[2025-04-09] MEDS ORDERED: SUGAMMADEX SODIUM 200 MG/2 ML VIAL As Ordered ONE (09:26)
[2025-04-09] MEDS ORDERED: ACETAMINOPHEN 1000MG/100ML IV BAG As Ordered ONE (09:27)
[2025-04-09] MEDS: LIDOCAINE 1% SDV 30 ML VIAL As Ordered ONE (11:00)
[2025-04-09] MEDS ORDERED: HYDROMORPHONE HCL 0.5 MG/0.5 ML SYRINGE IV PRN (11:30)
[2025-04-09 12:37] LABS: PLATELET COUNT, AUTOMATED 236 10^3/uL (150-450)
[2025-04-09 13:00] LABS: CALCIUM LEVEL 9.3 MG/DL (8.3-10.6); CARBON DIOXIDE LEVEL 24.0 MMOL/L (20-31); CHLORIDE LEVEL 104.0 MMOL/L (98-107); CREATININE FOR GFR 1.75 MG/DL (0.70-1.30); GLOMERULAR FILTRATION RATE 40.9 (>42); POTASSIUM SERUM 4.4 MMOL/L (3.5-5.1); SODIUM LEVEL 138.0 MMOL/L (136-145)
[2025-04-09] MEDS: NS (Normal Saline) 0.9% 1,000 ML IV SCH (14:59)
[2025-04-09] MEDS ORDERED: METO1TAB7 PO (15:28)
[2025-04-09] MEDS ORDERED: HOME MED LIST COMPLETE! XX SCH (15:30)
[2025-04-09] MEDS ORDERED: XARE15TA PO (15:45)
[2025-04-09] MEDS: ceFAZolin SOD 1 GM in DEXTROSE 5% (D5W) ADV/MINI-BAG 50 ML IV SCH (15:50)
[2025-04-09] MEDS: amLODIPine 10 MG TAB PO SCH (20:18)
[2025-04-09] MEDS: ATORVASTATIN 20 MG TAB PO SCH (20:18)
[2025-04-09] MEDS: METOPROLOL SUCC. 50 MG *XL* TAB PO SCH (20:19)
[2025-04-09] MEDS: DOCUSATE SODIUM 100 MG CAPSULE PO SCH (20:19)
[2025-04-09] MEDS: PERCOCET 5MG/325MG TAB PO PRN (20:20)
[2025-04-09] MEDS: HEPARIN SOD 5000 UNITS/ML 1 ML VIAL/SYRINGE SC SCH (20:21)
[2025-04-10 05:29] VITALS: BP 120/79; TEMP 97.3; O2SAT 100
[2025-04-10 06:56] LABS: PLATELET COUNT, AUTOMATED 226 10^3/uL (150-450)
[2025-04-10 07:33] LABS: CALCIUM LEVEL 8.2 MG/DL (8.3-10.6); CARBON DIOXIDE LEVEL 25.0 MMOL/L (20-31); CHLORIDE LEVEL 100.0 MMOL/L (98-107); CREATININE FOR GFR 1.6 MG/DL (0.70-1.30); GLOMERULAR FILTRATION RATE 45.5 (>42); POTASSIUM SERUM 4.4 MMOL/L (3.5-5.1); SODIUM LEVEL 134.0 MMOL/L (136-145)
[2025-04-10] MEDS ORDERED: PERCOCET PO (07:40)
[2025-04-10] MEDS ORDERED: CIPR-249 PO (07:40)
[2025-04-10] MEDS ORDERED: COLA100C5 PO (07:40)
[2025-04-10 08:00] VITALS: BP 102/69; TEMP 97.5; O2SAT 93
[2025-04-10 08:03] VITALS: BP 102/69
[2025-04-10] MEDS: LOSARTAN 50 MG TABLET PO SCH (08:03)
[2025-04-10] MEDS: FLUZONE HIGH DOSE (65+) 0.5 ML SYRINGE (25-26) IM.IMMUN ONE (08:05)
== END 2025-04-10 13:39 | disposition home or self-care (01) ==
LOC: M SDC 06:11 → M MSPAV 14:42 → M SDC 04-10 13:39
PROVIDERS: ATTEND Urology
DX: C61 Malignant neoplasm of prostate (principal); I48.91 Unspecified atrial fibrillation; I10 Essential (primary) hypertension; E78.00 Pure hypercholesterolemia, unspecified; M10.9 Gout, unspecified; Z79.899 Other long term (current) drug therapy; Z79.01 Long term (current) use of anticoagulants; Z85.118 Personal history of other malignant neoplasm of bronchus and lung; Z90.2 Acquired absence of lung [part of]; Z23 Encounter for immunization
CPT/HCPCS: 36415; 38571; 55866; 80048; 85027; 86850; 86900; 86901; 88305; 88309; 90662; G0008; J0131; J0665; J0688; J0690; J1100; J1171; J1596; J1805; J2250; J2371; J2405; J3010

== ENCOUNTER → 2025-04-23 | Outpatient (CLI) | payer MEDICARE, BC ==
[~2025-04-23] MED LIST changes: +CIPR-249 PO; +COLA100C5 PO; +METO1TAB7 PO; +PERCOCET PO; +XARE15TA PO
== END ==
LOC: M RAD 08:37
PROVIDERS: ATTEND Student in an Organized Health Care Education/Training Program
DX: R93.5 Abnormal findings on diagnostic imaging of other abdominal regions, including retroperitoneum (principal); K31.89 Other diseases of stomach and duodenum

== ENCOUNTER → 2025-04-24 | Outpatient (REF) | payer MEDICARE, BC | LOC: M LAB REF 12:04 | PROVIDERS: ATTEND Internal Medicine | DX: M10.9 Gout, unspecified (principal) ==

== ENCOUNTER → 2025-04-29 | Outpatient (REF) | payer MEDICARE, OTHER ==
[2025-04-29 13:40] LABS: HEPATITIS C VIRUS ABY INDEX 0.02 INDEX (<0.8)
== END ==
LOC: M LAB REF 12:09
PROVIDERS: ATTEND Internal Medicine
DX: R74.01 Elevation of levels of liver transaminase levels (principal)

== ENCOUNTER → 2025-05-01 | Outpatient (CLI) | payer MEDICARE, OTHER | LOC: M PLALAB 11:13 | PROVIDERS: ATTEND Nurse Practitioner Family | DX: C61 Malignant neoplasm of prostate (principal) ==

== ENCOUNTER → 2025-05-08 | Outpatient (CLI) | payer MEDICARE, BC | LOC: M RAD 11:16 | PROVIDERS: ATTEND Internal Medicine | DX: Z85.118 Personal history of other malignant neoplasm of bronchus and lung (principal); J98.11 Atelectasis; Z90.2 Acquired absence of lung [part of] ==

== ENCOUNTER → 2025-07-01 | Outpatient (CLI) | payer MEDICARE, BC ==
[~2025-07-01] MED LIST changes: +EQL50TAB2 PO; -RA B1TAB2 PO
== END ==
LOC: M PLALAB 11:12
PROVIDERS: ATTEND Urology
DX: C61 Malignant neoplasm of prostate (principal)